=== PATIENT | male | born 1980 | race Caucasian/White ===

== ENCOUNTER 2024-10-04 06:20 | Day surgery (SDC) | payer BC ==
[~2024-10-04 06:20] MED LIST: Sodium Chloride 0.9% 10 ML Syringe FLUSH PRN
[2024-10-04] MEDS ORDERED: Propofol 200 MG/20 ML SDV IV ONE (06:21)
[2024-10-04] MEDS ORDERED: Midazolam 1 MG/ML 2 ML SDV IV ONE (06:21)
[2024-10-04] MEDS ORDERED: Lidocaine 2% 100 MG/5 ML Syringe IVPUSH ONE (06:21)
[2024-10-04] MEDS: Lactated Ringers 1,000 ML IV SCH (07:24)
[2024-10-04] MEDS: Simethicone Drops 40 MG/0.6 ML 30 ML Bottle ONE (07:39)
== END 2024-10-04 09:33 | disposition home or self-care (01) ==
LOC: FB.SDS 06:20
PROVIDERS: ATTEND Surgery
DX: K62.5 Hemorrhage of anus and rectum (principal)
CPT/HCPCS: A9270-GY; J2250; J2704; J7120